=== PATIENT | male | born 1990 | race Caucasian/White ===

== ENCOUNTER 2021-02-03 19:37 | Emergency (ER) | payer BC ==
[~2021-02-03] VITALS: Ht 182.9 cm; Wt 104.3 kg
[2021-02-03 22:25] LABS: HEMOGLOBIN 13.9 gm/dl (14.0-17.5); RED BLOOD COUNT 4.53 M/UL (4.20-5.50); WHITE BLOOD COUNT 13.6 K/UL (4.5-11.0)
[2021-02-03 22:46] LABS: BUN/CREATININE RATIO 10 (0-10)
== END 2021-02-04 04:00 | disposition short-term general hospital (02) ==
LOC: ER1 19:37
PROVIDERS: Physician Assistant
DX: N49.3 Fournier gangrene (principal); E11.9 Type 2 diabetes mellitus without complications; Z20.822 Contact with and (suspected) exposure to COVID-19
CPT/HCPCS: 80053; 81001; 82962; 83605; 83735; 85025; 85652; 86140; 87040; 96365; 96367; 96375; 99283; J3370; J7030; J7070; Q9967; U0002